=== PATIENT | female | born 1970 ===

== ENCOUNTER 2016-09-28 08:25 | Outpatient (CLI) | payer OTHER ==
--- NOTE | 2016-09-28 09:26 | Ultrasound Report ---
TRANSABDOMINAL AND TRANSVAGINAL PELVIC ULTRASOUND: 09/28/16 08:25:00 CLINICAL: Menorrhagia. FINDINGS: Transabdominal and transvaginal pelvic ultrasound demonstrated a normal small uterus measuring 6.4 x 3.6 x 5.3 cm. Normal uterine contour and echogenicity. No uterine fibroid or mass. A normal proliferative endometrium measures 8.2 mm AP thickness. Normal right ovary. The right ovary measures 2.3 x 1.7 x 2.1cm. A 2.6 cm dominant follicle the left ovary. The left ovary measures 3.1 x 2.0 x 2.6cm. No adnexal mass. Mild free fluid in the cul-de-sac. Normal urinary bladder. IMPRESSION: Normal uterus and ovaries with a 2.6 cm dominant follicle of the left ovary.
== END 2016-09-28 08:26 | disposition home or self-care (01) ==
LOC: SPVWC 08:25
PROVIDERS: ATTEND Internal Medicine
DX: N92.0 Excessive and frequent menstruation with regular cycle (principal)
CPT/HCPCS: 76830; 76856